=== PATIENT | female | born 1970 | race Caucasian/White ===

== ENCOUNTER 2017-05-09 07:36 | Inpatient (IN) | payer OTHER ==
[~2017-05-09] VITALS: Ht 175.3 cm; Wt 88.4 kg
[~2017-05-09 07:36] MED LIST: MIRA3350 PO; PROT40TA PO; ZOFR4TAB PO
[2017-05-09 08:10] VITALS: BP 117/55; PULSE 74; RESP 20; TEMP 97.3; O2SAT 96
[2017-05-09] MEDS ORDERED: ONDANSETRON HCL 4 MG/2 ML VIAL IV PUSH PRN (09:30)
[2017-05-09] MEDS ORDERED: NALOXONE HCL 0.4 MG/ML AMP IV PRN (10:15)
[2017-05-09] MEDS ORDERED: SODIUM CHLORIDE 0.9% FLUSH 10 ML FLUSH IV FLUSH PRN (10:15)
[2017-05-09] MEDS ORDERED: ACETAMINOPHEN 325 MG TAB PO PRN (10:15)
[2017-05-09] MEDS ORDERED: TEMAZEPAM 15 MG CAP PO PRN (10:15)
[2017-05-09] MEDS: 1/2 NS + KCL 20 MEQ INJ 1,000 ML IV SCH ×2 (10:30→20:30)
--- NOTE | 2017-05-09 10:30 | RADRPT ---
EXAM DATE/TIME: 05/09/2017 10:22 [facility] COMPARISON: No previous studies available for comparison. INDICATIONS : Nausea and vomiting. MEDICAL HISTORY : None. SURGICAL HISTORY : Hysterectomy. ENCOUNTER: Subsequent ACUITY: 2 days PAIN SCORE: 6/10 LOCATION: Abdomen FINDINGS: A single view of the chest demonstrates the lungs to be symmetrically aerated without evidence of mas s, infiltrate or effusion. The cardiomediastinal contours are unremarkable. Osseous structures are intact. CONCLUSION: No acute disease. Jose Dodge MD on May 09, 2017 at 10:27 Board Certified Radiologist. This report was verified electronically.
--- NOTE | 2017-05-09 10:34 | HHI.HP ---
HPI Service [facility] Hospitalists Primary Care Physician Non-Staff Admission Diagnosis Chief Complaint: abdominal pain Travel History International Travel<30 Days: No Contact w/Intl Traveler <30 Da: No Traveled to Known Affected Are: No History of Present Illness Patient is a 47-year-old female with essentially no past medical history who presented to [facility] with complaint of abdominal pain. Patient has had multiple abdominal surgeries: She had 2 sections, unilateral oophorectomy, abdominal hysterectomy (possibly with simultaneous lysis of adhesions), and later removal of other ovary. Patient states that she started feeling ill 2-3 days ago. Initially patient had nausea and diarrhea. Last night she developed sharp abdominal pain and could not find a position of comfort. Simultaneously, patient had nausea and vomiting. Patient denies any fever, chills, or recent travel. Patient took Pepto-Bismol without relief. Patient denies history of gallbladder disease. CT Abd/pelvis (05/09/17) obtain at [facility] showed mild to moderately dilated loops of small bowel in the midabdomen. The distal small bowel is nondilated. Findings consistent with either a partial small bowel obstruction versus ileus. No NGT was placed. Patient denies previous episodes of same with the exception of less intense abdominal pain 3 years ago. At that time she saw a cut off tender glass. Patient underwent EGD (02/16/2012) performed by Dr. Aleksander Kramer. Findings included irregular Z line, chronic gastritis, erythematous duodenum adenopathy. Pathology showed Quinn Giemsa stain positive for Helicobacter pylori. Patient had a colonoscopy performed (02/16/12) by Dr. Aleksander Kramer without abnormal findings. Review of Systems Constitutional: DENIES: Diaphoretic episodes, Fatigue, Fever, Weight gain, Weight loss, Chills, Dizziness, Change in appetite, Night Sweats Endocrine: DENIES: Abnorml menstrual pattern, Heat/cold intolerance, Polydipsia , Polyuria, Polyphagia Eyes: DENIES: Blurred vision, Diplopia, Eye inflammation, Eye pain, Vision loss , Photosensitivity, Double Vision Ears, nose, mouth, throat: DENIES: Tinnitus, Hearing loss, Vertigo, Nasal discharge, Oral lesions, Throat pain, Hoarseness, Ear Pain, Running Nose, Epistaxis, Sinus Pain, Toothache, Odynophagia Respiratory: DENIES: Apneas, Cough, Snoring, Wheezing, Hemoptysis, Sputum production, Shortness of breath Cardiovascular: DENIES: Chest pain, Palpitations, Syncope, Dyspnea on Exertion , PND, Lower Extremity Edema, Orthopnea, Claudication Gastrointestinal: COMPLAINS OF: Abdominal pain, See HPI, DENIES: Black stools , Bloody stools, BRB per rectum, Constipation, Diarrhea, GERD, Nausea, Reflux, Vomiting, Difficulty Swallowing, Anorexia Genitourinary: COMPLAINS OF: Vaginal discharge, DENIES: Dysmenorrhea, Urinary frequency, Urinary incontinence, Urgency, Hematuria, Dysuria, Nocturia Musculoskeletal: DENIES: Joint pain, Muscle aches, Stiffness, Joint Swelling, Back pain, Neck pain Integumentary: DENIES: Abnormal pigmentation, Pruritus, Rash, Nail changes, Breast masses, Breast skin changes, Nipple discharge Hematologic/lymphatic: DENIES: Bruising, Lymphadenopathy Immunologic/allergic: DENIES: Eczema, Urticaria Neurologic: DENIES: Abnormal gait, Headache, Localized weakness, Paresthesias, Seizures, Speech Problems, Tremor, Poor Balance Psychiatric: DENIES: Anxiety, Confusion, Mood changes, Depression, Hallucinations, Agitation, Suicidal Ideation, Homicidal Ideation, Delusions, History of Bipolar, History of Schizophrenia Past Family Social History Past Medical History - Vitamin D deficiency - tension headaches Past Surgical History 1) section x 2 2) total abdominal hysterectomy (possibly with GILDA) 3) unilateral oophorectomy 4) removal of other ovary following her YANDEL, but NOT at the time of the SAY 5) excision of begin breast mass (?cyst) from left breast x 2 Reported Medications - vitamin D weekly - prn motrin Allergies: Coded Allergies: No Known Allergies (Unverified , 05/09/17) Family History - Mother at 33, leukemia - father living, 76 y/o. A&W - brother living 44 y/o. [employer]W Social History - Never a smoker - No alcohol use - No illicit street drugs Physical Exam Vital Signs Vital Signs Date Time Temp Pulse Resp B/P Pulse Ox O2 Delivery O2 Flow Rate FiO2 05/09/17 08:10 97.3 74 20 117/55 96 Physical Exam GENERAL: This is a well-nourished, well-developed patient, in no apparent distress. SKIN: No rashes, ecchymoses or lesions. Cool and dry. HEAD: Atraumatic. Normocephalic. No temporal or scalp tenderness. EYES: Pupils equal round and reactive. Extraocular motions intact. No scleral icterus. No injection or drainage. ENT: Nose without bleeding, purulent drainage or septal hematoma. Throat without erythema, tonsillar hypertrophy or exudate. Uvula midline. Airway patent. NECK: Trachea midline. No JVD or lymphadenopathy. Supple, nontender, no meningeal signs. CARDIOVASCULAR: Regular rate and rhythm without murmurs, gallops, or rubs. RESPIRATORY: Clear to auscultation. Breath sounds equal bilaterally. No wheezes , rales, or rhonchi. GASTROINTESTINAL: Abdomen soft, non-tender, nondistended. No hepato-splenomegaly , or palpable masses. No guarding. mild discomfort on palpation at LUQ & RUQ. decreased bowel sounds x 4 MUSCULOSKELETAL: Extremities without clubbing, cyanosis, or edema. No joint tenderness, effusion, or edema noted. No calf tenderness. Negative Homans sign bilaterally. NEUROLOGICAL: Awake and alert. Cranial nerves II through XII intact. Motor and sensory grossly within normal limits. Five out of 5 muscle strength in all muscle groups. Normal speech. Septic Shock Reassessment Heart: Regular rate and rhythm Lungs: Clear Skin: Warm Peripheral Pulses: Bounding Right Radial Bounding Left Radial Bounding Right Popliteal Bounding Left Popliteal Bounding Right Dorsalis Pedis Bounding Left Dorsalis Pedis Bounding Right Posterior Tibial Bounding Left Posterior Tibial Capillary Refill: Brisk Assessment and Plan Problem List: (1) Ileus, unspecified Status: Acute Plan: - Patient with previous history of section, YANDEL, and lysis of adhesions - Pt present to the [facility] ER with c/o abdominal pain for 8 hours - CT Abd/pelvis (05/09/17) obtain at [facility] showed mild to moderately dilated loops of small bowel in the midabdomen. The distal small bowel is nondilated. Findings consistent with either a partial small bowel obstruction versus ileus - Ddx: Ileus vs partial SBO. Given pt's significant h/o abdominal surgeries, I am concerned about partial SBO. - NPO - IVFs - zofran - dilaudid 0.5mg q6h prn - repeat KUB in AM (05/10/17) - repeat CBC, BMP, Mag in AM - supportive care. Physician Certification 2 Midnight Certification Type: Admission for Inpatient Services Order for Inpatient Services The services are ordered in accordance with Medicare regulations or non- Medicare payer requirements, as applicable. In the case of services not specified as inpatient-only, they are appropriately provided as inpatient services in accordance with the 2-midnight benchmark. Estimated LOS (days): 3 days is the estimated time the patient will need to remain in the hospital, assuming treatment plan goals are met and no additional complications. Post-Hospital Plan: Home Lenny Anderson DO May 09, 2017 10:34
[2017-05-09] MEDS ORDERED: HYDROmorphone HCL PF 1 MG/ML VIAL IV PUSH PRN (10:45)
[2017-05-09 12:28] VITALS: BP 114/56; PULSE 69; RESP 20; TEMP 98.5; O2SAT 98
[2017-05-09 12:42] VITALS: BP 114/56; PULSE 69; RESP 20; TEMP 98.5; O2SAT 98
--- NOTE | 2017-05-09 13:51 | EKG ---
Date Performed: 05/09/2017 Time Performed: 11:17:24 PTAGE: 47 years EKG: Sinus rhythm NORMAL ECG NO PREVIOUS TRACING DOCTOR: John Cope Interpretating Date/Time 05/09/2017 13:49:46
[2017-05-09 15:42] VITALS: BP 119/62; PULSE 72; RESP 18; TEMP 98.8; O2SAT 96
[2017-05-09 16:17] LABS: HEMOGLOBIN A1a 1.3 %; HEMOGLOBIN A1b 0.7 %; HEMOGLOBIN Ao 83.4 %; HEMOGLOBIN P3 3.6 %
[2017-05-09 20:00] VITALS: BP 118/57; PULSE 74; RESP 20; TEMP 97.9; O2SAT 94
[2017-05-09] MEDS: SODIUM CHLORIDE 0.9% FLUSH 10 ML FLUSH IV FLUSH SCH (21:00)
[2017-05-10] VITALS: BP 117/58; PULSE 69; RESP 20; TEMP 98.7; O2SAT 99
[2017-05-10 04:00] VITALS: BP 116/67; PULSE 73; RESP 20; TEMP 98.7; O2SAT 99
[2017-05-10] MEDS: 1/2 NS + KCL 20 MEQ INJ 1,000 ML IV SCH ×2 (06:36→16:30)
[2017-05-10] MEDS: SODIUM CHLORIDE 0.9% FLUSH 10 ML FLUSH IV FLUSH SCH ×2 (07:51→21:00)
[2017-05-10] MEDS: PANTOPRAZOLE SODIUM 40 MG VIAL IV PUSH SCH (07:52)
[2017-05-10 08:00] VITALS: BP 117/58; PULSE 74; RESP 18; TEMP 98.4; O2SAT 98
[2017-05-10 08:25] LABS: AUTOMATED NEUTROPHIL # 4.2 TH/MM3 (1.8-7.7); BASOPHIL % 0.4 % (0.0-2.0); EOSINOPHIL # 0.2 TH/MM3 (0-0.4); EOSINOPHIL % 2.2 % (0.0-4.0); HEMATOCRIT 37.6 % (35.0-46.0); HEMO FLAGS DIFF FINAL; LYMPH % 32.5 % (9.0-44.0); LYMPHOCYTE # 2.3 TH/MM3 (1.0-4.8); MEAN CELL VOLUME 89.6 FL (80.0-100.0); MEAN CORPUSCULAR HEMOGLOBIN 30.5 PG (27.0-34.0); MONO % 6.1 % (0.0-8.0); NEUT % 58.8 % (16.0-70.0); PLATELET COUNT 245 TH/MM3 (150-450); RED CELL DISTRIBUTION WIDTH 12.8 % (11.6-17.2); WHITE BLOOD COUNT 7.2 TH/MM3 (4.0-11.0)
[2017-05-10 08:55] LABS: BICARBONATE 29.3 MEQ/L (21.0-32.0); POTASSIUM 4.2 MEQ/L (3.5-5.1)
[2017-05-10 12:00] VITALS: BP 110/54; PULSE 77; RESP 19; TEMP 97.5; O2SAT 100
--- NOTE | 2017-05-10 12:54 | RADRPT ---
EXAM DATE/TIME: 05/10/2017 12:44 [facility] COMPARISON: CT ABDOMEN & PELVIS W CONTRAST, May 09, 2017, 4:44. INDICATIONS : Abdominal pain. MEDICAL HISTORY : None. SURGICAL HISTORY : section. ENCOUNTER: Initial ACUITY: 2 days PAIN SCORE: 5/10 LOCATION: Bilateral abdomen. FINDINGS: Supine view of the abdomen was performed. The abdominal bowel gas pattern is normal. Residual contr ast in the colon. Surgical clip in the right pelvis. No abnormal masses, calcifications, or organomeg erika is seen. The osseous structures are unremarkable. CONCLUSION: No acute abnormalities. Jose Dodge MD on May 10, 2017 at 12:52 Board Certified Radiologist. This report was verified electronically.
--- NOTE | 2017-05-10 13:38 | HHI.PR ---
Subjective Remarks abdominal pain and nausea have resolved. (+) flatus. Pt is requesting a diet. Objective Vitals Vital Signs Date Time Temp Pulse Resp B/P Pulse Ox O2 Delivery O2 Flow Rate FiO2 05/10/17 12:00 97.5 77 19 110/54 100 05/10/17 08:00 98.4 74 18 117/58 98 05/10/17 04:00 98.7 73 20 116/67 99 05/10/17 00:00 98.7 69 20 117/58 99 05/09/17 20:00 97.9 74 20 118/57 94 05/09/17 20:00 97.9 74 20 118/57 94 05/09/17 20:00 97.9 74 20 118/57 94 05/09/17 15:42 98.8 72 18 119/62 96 05/09/17 05/09/17 05/10/17 14:59 22:59 06:59 Intake Total 964 ml 815 ml Balance 964 ml 815 ml Intake IV Total 964 ml 815 ml # Voids 2 1 1 Result Diagram: 05/10/17 0730 05/10/17 0730 Imaging Last Impressions Abdomen X-Ray 05/10/17 0000 Signed Impressions: Service Date/Time: Wednesday, May 10, 2017 12:44 - CONCLUSION: No acute abnormalities. Jose Dodge MD Chest X-Ray 05/09/17 0000 Signed Impressions: Service Date/Time: Tuesday, May 09, 2017 10:22 - CONCLUSION: No acute disease. Jose Dodge MD Objective Remarks GENERAL: This is a well-nourished, well-developed patient, in no apparent distress. CARDIOVASCULAR: Regular rate and rhythm without murmurs, gallops, or rubs. RESPIRATORY: Clear to auscultation. Breath sounds equal bilaterally. No wheezes , rales, or rhonchi. GASTROINTESTINAL: Abdomen soft, mild tenderness on palpation at RUQ, nondistended, decreased BS x 4 MUSCULOSKELETAL: Extremities without clubbing, cyanosis, or edema. NEURO: Alert & Oriented x4 to person, place, time, situation. Moves all ext x4 A/P Problem List: (1) Ileus, unspecified Status: Acute Plan: - Patient with previous history of section, YANDEL, and lysis of adhesions - Pt present to the [facility] ER with c/o abdominal pain for 8 hours - CT Abd/pelvis (05/09/17) obtain at [place] ER showed mild to moderately dilated loops of small bowel in the midabdomen. The distal small bowel is nondilated. Findings consistent with either a partial small bowel obstruction versus ileus - Ddx: Ileus vs partial SBO. Given pt's significant h/o abdominal surgeries, I am concerned about partial SBO. - pt clinically improved today - KUB (05/10/17) --> NO acute fidnings - advance diet to clears, then full liquids at dinner if stable - IVFs - zofran - norco prn - anticipate d/c 05/11 - supportive care. Lenny Anderson DO May 10, 2017 13:38
[2017-05-10] MEDS ORDERED: ACETAMINOPHEN/HYDROcodone 325 MG/5 MG TAB PO PRN (13:45)
[2017-05-10 16:00] VITALS: BP 118/61; PULSE 71; RESP 18; TEMP 97.1; O2SAT 100
[2017-05-10 20:00] VITALS: BP 109/62; PULSE 76; RESP 20; TEMP 98.6; O2SAT 97
[2017-05-11] VITALS: BP 126/58; PULSE 80; RESP 20; TEMP 98.5; O2SAT 99
[2017-05-11] MEDS: 1/2 NS + KCL 20 MEQ INJ 1,000 ML IV SCH ×3 (02:30→12:13)
[2017-05-11 04:00] VITALS: BP 126/62; PULSE 77; RESP 20; TEMP 98.2; O2SAT 98
[2017-05-11] MEDS: PANTOPRAZOLE SODIUM 40 MG VIAL IV PUSH SCH (07:49)
[2017-05-11] MEDS: SODIUM CHLORIDE 0.9% FLUSH 10 ML FLUSH IV FLUSH SCH (07:56)
[2017-05-11 08:00] VITALS: BP 104/56; PULSE 81; RESP 17; TEMP 98.2; O2SAT 98
[2017-05-11 12:00] VITALS: BP 106/49; PULSE 92; RESP 19; TEMP 98.3; O2SAT 100
--- NOTE | 2017-05-11 15:44 | HHI.PR ---
Subjective Remarks tolerating liquid diet Objective Vitals Vital Signs Date Time Temp Pulse Resp B/P Pulse Ox O2 Delivery O2 Flow Rate FiO2 05/11/17 12:00 98.3 92 19 106/49 100 05/11/17 08:00 98.2 81 17 104/56 98 05/11/17 04:00 98.2 77 20 126/62 98 05/11/17 00:00 98.5 80 20 126/58 99 05/10/17 20:00 98.6 76 20 109/62 97 05/10/17 16:00 97.1 71 18 118/61 100 05/10/17 05/10/17 05/11/17 15:00 23:00 07:00 Intake Total 480 ml 240 ml 120 ml Balance 480 ml 240 ml 120 ml Intake Oral 480 ml 240 ml 120 ml # Voids 2 # Bowel Movements 0 0 Result Diagram: 05/10/17 0730 05/10/17 0730 Imaging Last Impressions Abdomen X-Ray 05/10/17 0000 Signed Impressions: Service Date/Time: Wednesday, May 10, 2017 12:44 - CONCLUSION: No acute abnormalities. Jose Dodge MD Chest X-Ray 05/09/17 0000 Signed Impressions: Service Date/Time: Tuesday, May 09, 2017 10:22 - CONCLUSION: No acute disease. Jose Dodge MD Objective Remarks GENERAL: This is a well-nourished, well-developed patient, in no apparent distress. CARDIOVASCULAR: Regular rate and rhythm without murmurs, gallops, or rubs. RESPIRATORY: Clear to auscultation. Breath sounds equal bilaterally. No wheezes , rales, or rhonchi. GASTROINTESTINAL: Abdomen soft, mild tenderness on palpation at RUQ, nondistended, +BS x 4 MUSCULOSKELETAL: Extremities without clubbing, cyanosis, or edema. NEURO: Alert & Oriented x4 to person, place, time, situation. Moves all ext x4 A/P Problem List: (1) Ileus, unspecified Status: Acute Plan: - Patient with previous history of section, YANDEL, and lysis of adhesions - Pt present to the [facility] ER with c/o abdominal pain for 8 hours - CT Abd/pelvis (05/09/17) obtain at [place] ER showed mild to moderately dilated loops of small bowel in the midabdomen. The distal small bowel is nondilated. Findings consistent with either a partial small bowel obstruction versus ileus - Ddx: Ileus vs partial SBO. Given pt's significant h/o abdominal surgeries, I am concerned about partial SBO. - pt clinically improved today - KUB (05/10/17) --> NO acute fidnings - tolerating clears advance to soft-regular and discharge to home - f/u with PCP, Dr. Lira in 1 week - f/u with General Surgery, Dr. Dupree, in 2 weeks - return to ER or call PCP for any further problems. Lenny Anderson DO May 11, 2017 15:44
== END 2017-05-11 18:11 | disposition home or self-care (01) | DRG 390 ==
LOC: NEDDLT 07:36 → N05A 07:54
PROVIDERS: ADMIT Hospitalist; ATTEND Hospitalist
DX: K56.7 Ileus, unspecified (principal); E55.9 Vitamin D deficiency, unspecified
CPT/HCPCS: 71010; 74000; 74020; 74177; 76937; 80048; 80053; 81001; 82272; 83036; 83690; 85025; 87086; 93005; C9113; J1170; J2270; J2405; J2765; Q9963; Q9967